=== PATIENT | male | born 1965 | race African-American/Black ===

== ENCOUNTER 2018-04-11 12:12 | Emergency (ER) | payer MEDICAID ==
[~2018-04-11] VITALS: Ht 180.3 cm; Wt 75.0 kg
[~2018-04-11 12:12] MED LIST: CARB300C6; INSLAN SQ; INSU3INS8; METF500T PO; OMEP20CA4 PO; TRAMADOL
[2018-04-11] MEDS ORDERED: ACETAMINOPHEN 325MG TABLET PO ONE (16:15)
[2018-04-11 17:46] VITALS: BP 128/53
== END 2018-04-11 17:47 | disposition home or self-care (01) ==
LOC: ER 12:27
DX: M25.571 Pain in right ankle and joints of right foot (principal); E78.00 Pure hypercholesterolemia, unspecified; I10 Essential (primary) hypertension; E11.9 Type 2 diabetes mellitus without complications; Z79.4 Long term (current) use of insulin; W01.0XXA Fall on same level from slipping, tripping and stumbling without subsequent striking against object, initial encounter; Y93.89 Activity, other specified; Y92.512 Supermarket, store or market as the place of occurrence of the external cause
CPT/HCPCS: 73562; 73590; 73610; 73630; 99284; Z7610